=== PATIENT | male | born 1935 | race Caucasian/White ===

== ENCOUNTER 2021-03-08 08:22 | Emergency (ER) | payer MEDICARE, OTHER ==
[2021-03-08] VITALS (9 sets, daily range): BP systolic 120–143; BP diastolic 58–77
[~2021-03-08] VITALS: Ht 165.1 cm; Wt 86.8 kg
[~2021-03-08 08:22] MED LIST: ACET-3068 PO; LATA2.5D14; LISI10TA27; METF-438; SIMV10TA98; TEMA15CA
[2021-03-08] MEDS ORDERED: normal saline 1000ML IV soln IVB ONE (08:50)
[2021-03-08 09:32] LABS: BASOPHILS % (AUTO) 0.4 % (0-1); EOSINOPHILS % (AUTO) 0.4 % (0-6); HEMATOCRIT 22.9 % (42.0-52.0); HEMOGLOBIN 7.1 g/dl (14.0-17.9); LYMPHOCYTES # (AUTO) 0.9 X10'3 (1.1-4.8); LYMPHOCYTES % (AUTO) 27.4 % (21-51); MEAN CORPUSCULAR HEMOGLOBIN 29.6 PG (27.0-31.0); MEAN CORPUSCULAR HGB CONC 30.9 g/dL (33.0-36.5); MEAN CORPUSCULAR VOLUME 95.7 FL (78-98); MEAN PLATELET VOLUME 8.7 FL (7.4-10.4); MONOCYTES # (AUTO) 1.1 X10'3 (0-0.9); NEUTROPHILS # (AUTO) 1.2 X10'3 (1.8-7.7); NEUTROPHILS % (AUTO) 37.8 % (42-75); PLATELET COUNT 67 X10'3 (140-440); RED CELL DISTRIBUTION WIDTH 22.8 % (11.5-14.5); WHITE BLOOD COUNT 3.1 X10'3 (4.5-11.0)
[2021-03-08 09:53] LABS: ALBUMIN 3.2 G/DL (3.4-5.0); ALBUMIN/GLOBULIN RATIO 0.9 (1.1-1.5); ALKALINE PHOSPHATASE 52 IU/L (46-116); ANION GAP 10 (8-16); ASPARTATE AMINO TRANSFERASE 8 U/L (10-37); BILIRUBIN,TOTAL 0.5 MG/DL (0.1-1.0); BLOOD UREA NITROGEN 21 MG/DL (7-18); BUN/CREATININE RATIO 18.3 (5.4-32.0); CALCIUM 8.9 MG/DL (8.5-10.1); CHLORIDE 106 MMOL/L (99-107); CREATININE 1.15 MG/DL (0.60-1.10); GLUCOSE 116 MG/DL (70-104); POTASSIUM 4.1 MMOL/L (3.5-5.1); SODIUM 138 MMOL/L (135-145); TOTAL CARBON DIOXIDE 21.9 MMOL/L (24-32); TOTAL PROTEIN 6.7 G/DL (6.4-8.2); eGFR 60 ML/MIN
[2021-03-08 10:15] LABS: ANISOCYTOSIS 3+; PLATELET ESTIMATE DECREASED; TOTAL CELLS COUNTED 100
[2021-03-08 10:39] LABS: ALANINE AMINOTRANSFERASE 8 U/L (12-78)
--- NOTE | 2021-03-08 13:17 | NUR ---
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 Pt calm in bed, VSS, afebrile. Pt has PRBC infusing, site iv intact and pt breathing even and easy. Continue monitoring closely
== END 2021-03-08 16:44 | disposition home or self-care (01) ==
LOC: ER 08:23
DX: D50.0 Iron deficiency anemia secondary to blood loss (chronic) (principal); C92.00 Acute myeloblastic leukemia, not having achieved remission; I10 Essential (primary) hypertension; E11.9 Type 2 diabetes mellitus without complications; Z98.890 Other specified postprocedural states
CPT/HCPCS: 36415; 36430; 71045; 80053; 85007; 85025; 85610; 86644; 86885; 86900; 86901; 86920; 86945; 93005; 96360; 96361; 99291; J7030; P9016

== ENCOUNTER 2021-06-10 09:35 | Emergency (ER) | payer MEDICARE, OTHER ==
[~2021-06-10] VITALS: Ht 165.1 cm; Wt 84.0 kg
[2021-06-10] MEDS ORDERED: normal saline 1000ML IV soln IVB ONE (09:45)
[2021-06-10 10:58] LABS: BASOPHILS % (AUTO) 0.2 % (0-1); EOSINOPHILS % (AUTO) 0.1 % (0-6); HEMATOCRIT 24.1 % (42.0-52.0); HEMOGLOBIN 7.9 g/dl (14.0-17.9); LYMPHOCYTES # (AUTO) 0.6 X10'3 (1.1-4.8); LYMPHOCYTES % (AUTO) 5.7 % (21-51); MEAN CORPUSCULAR HEMOGLOBIN 33.7 PG (27.0-31.0); MEAN CORPUSCULAR HGB CONC 32.9 g/dL (33.0-36.5); MEAN CORPUSCULAR VOLUME 102.4 FL (78-98); MEAN PLATELET VOLUME 8.3 FL (7.4-10.4); MONOCYTES # (AUTO) 5.6 X10'3 (0-0.9); NEUTROPHILS # (AUTO) 4.5 X10'3 (1.8-7.7); PLATELET COUNT 74 X10'3 (140-440); RED BLOOD COUNT 2.36 X10'6 (4.70-6.10); RED CELL DISTRIBUTION WIDTH 21.2 % (11.5-14.5); WHITE BLOOD COUNT 10.7 X10'3 (4.5-11.0)
[2021-06-10 11:11] LABS: ALANINE AMINOTRANSFERASE 12 U/L (12-78); ALBUMIN 2.9 G/DL (3.4-5.0); ALBUMIN/GLOBULIN RATIO 0.9 (1.1-1.5); ALKALINE PHOSPHATASE 65 IU/L (46-116); ANION GAP 10 (8-16); ASPARTATE AMINO TRANSFERASE 9 U/L (10-37); BILIRUBIN,TOTAL 0.7 MG/DL (0.1-1.0); BLOOD UREA NITROGEN 25 MG/DL (7-18); BUN/CREATININE RATIO 18.2 (5.4-32.0); CALCIUM 8.6 MG/DL (8.5-10.1); CHLORIDE 107 MMOL/L (99-107); CREATININE 1.37 MG/DL (0.60-1.10); GLUCOSE 174 MG/DL (70-104); POTASSIUM 4.1 MMOL/L (3.5-5.1); SODIUM 142 MMOL/L (135-145); TOTAL CARBON DIOXIDE 24.9 MMOL/L (24-32); TOTAL PROTEIN 6.3 G/DL (6.4-8.2); eGFR 49 ML/MIN
[2021-06-10 11:48] LABS: TOTAL CELLS COUNTED 100
[2021-06-10 11:51] LABS: ANISOCYTOSIS 3+; PLATELET ESTIMATE DECREASED
[2021-06-10 11:52] LABS: LARGE PLATELETS FEW; POLYCHROMASIA FEW; SPHEROCYTES FEW; STOMATOCYTES 3+
[2021-06-10 13:09] LABS: CLARITY,URINE SLIGHTLY CLOUDY (Clear); COLOR,URINE YELLOW (Yellow); GLUCOSE, URINE NEGATIVE (Neg); KETONES,URINE NEGATIVE (Neg); LEUKOCYTE ESTERASE ,URINE NEGATIVE (Neg); NITRITES, URINE NEGATIVE (Neg); OCCULT BLOOD,URINE TRACE-LYSED (Neg); PROTEIN,URINE NEGATIVE (Neg); UA COLLECTION TYPE CLN CATCH MIDSTREAM; UROBILINOGEN,URINE 0.2 E.U/dL (0.2-1.0)
[2021-06-10 13:18] LABS: HYALINE CASTS 0-3 /LPF (NEGATIVE); SQUAMOUS EPITHELIAL CELL,UR FEW /LPF (FEW)
[2021-06-10 13:19] LABS: BACTERIA,URINE FEW /HPF (Neg)
[2021-06-10 13:20] LABS: WBC,URINE 0-4 /HPF (0-4)
[2021-06-10] MEDS ORDERED: acetaminophen 325mg tablet PO ONE (13:25)
--- NOTE | 2021-06-10 13:47 | NUR ---
PT AMB WITH MIN ASSIST ABOUT 10-15 FEET, USING WALKER, NO LIGHTHEADEDNESS/DIZZINESS, AT BEDSIDE
[2021-06-10 14:11] VITALS: BP 114/62
== END 2021-06-10 14:14 | disposition home or self-care (01) ==
LOC: ER 09:35
DX: D53.9 Nutritional anemia, unspecified (principal); I10 Essential (primary) hypertension; E11.9 Type 2 diabetes mellitus without complications; Z85.6 Personal history of leukemia; Z98.890 Other specified postprocedural states; Z79.899 Other long term (current) drug therapy
CPT/HCPCS: 36415; 80053; 81001; 85007; 85025; 96360; 96361; 99285; J7030

== ENCOUNTER 2021-07-17 15:52 | Inpatient (IN) | payer MEDICARE ==
[~2021-07-17] VITALS: Ht 165.1 cm; Wt 84.1 kg
--- NOTE | 2021-07-17 16:21 | NUR ---
PT IS RESTING QUIETLY ON GURNEY, RESP EVEN AND UNLABORED, GAVE PT WARM BLANKET
[2021-07-17 16:32] LABS: ALANINE AMINOTRANSFERASE 13 U/L (12-78); ALBUMIN 3.1 G/DL (3.4-5.0); ALBUMIN/GLOBULIN RATIO 0.9 (1.1-1.5); ALKALINE PHOSPHATASE 45 IU/L (46-116); ANION GAP 11 (8-16); ASPARTATE AMINO TRANSFERASE 10 U/L (10-37); BILIRUBIN,TOTAL 0.5 MG/DL (0.1-1.0); BLOOD UREA NITROGEN 23 MG/DL (7-18); BUN/CREATININE RATIO 17.3 (5.4-32.0); CHLORIDE 107 MMOL/L (99-107); CREATININE 1.33 MG/DL (0.60-1.10); GLUCOSE 219 MG/DL (70-104); HEMOGLOBIN 7.5 g/dl (14.0-17.9); MONOCYTES # (AUTO) 5.7 X10'3 (0-0.9); POTASSIUM 4.2 MMOL/L (3.5-5.1); SODIUM 144 MMOL/L (135-145); TOTAL CARBON DIOXIDE 25.8 MMOL/L (24-32); TOTAL PROTEIN 6.4 G/DL (6.4-8.2); eGFR 51 ML/MIN
[2021-07-17 16:34] LABS: BASOPHILS % (AUTO) 0 % (0-1); EOSINOPHILS % (AUTO) 0.2 % (0-6); HEMATOCRIT 22.7 % (42.0-52.0); LYMPHOCYTES # (AUTO) 0.5 X10'3 (1.1-4.8); LYMPHOCYTES % (AUTO) 4.7 % (21-51); MEAN CORPUSCULAR HEMOGLOBIN 33.8 PG (27.0-31.0); MEAN CORPUSCULAR HGB CONC 33.1 g/dL (33.0-36.5); MEAN CORPUSCULAR VOLUME 102.3 FL (78-98); MEAN PLATELET VOLUME 8.8 FL (7.4-10.4); NEUTROPHILS # (AUTO) 3.5 X10'3 (1.8-7.7); NEUTROPHILS % (AUTO) 36.2 % (42-75); PLATELET COUNT 128 X10'3 (140-440); RED BLOOD COUNT 2.21 X10'6 (4.70-6.10); RED CELL DISTRIBUTION WIDTH 19.9 % (11.5-14.5); WHITE BLOOD COUNT 9.7 X10'3 (4.5-11.0)
[2021-07-17] MEDS ORDERED: normal saline 1000ml 1,000 ML IV ONE (17:30)
[2021-07-17] MEDS ORDERED: iohexol 350MG/ML 100ml bottle IV ONE (17:39)
[2021-07-17 18:21] LABS: ANISOCYTOSIS 3+; MICROCYTOSIS FEW; NUCLEATED RED BLOOD CELLS 1 /100WBC (0-0); PLATELET ESTIMATE DECREASED; TOTAL CELLS COUNTED 100
[2021-07-17 18:22] LABS: POLYCHROMASIA 1+; TEAR DROP CELLS FEW
[2021-07-17 18:23] LABS: LARGE PLATELETS FEW; STOMATOCYTES 4+; TOXIC VACUOLATION 1+
[2021-07-17 18:27] LABS: MONOCYTES % (AUTO) 58.9 % (2-12)
[2021-07-17] MEDS ORDERED: MESSAGE TO NURSING PO ONE (19:50)
[2021-07-17] MEDS ORDERED: azithromycin 250mg tablet PO ONE (20:05)
[2021-07-17] MEDS ORDERED: CefTRIAXone/D5W-Rocephin 1gm 50 ML IV ONE (20:05)
[2021-07-17] MEDS ORDERED: metroNIDAZOLE-Flagyl 500mg/NS 100 ML IV STA (20:45)
[2021-07-17] MEDS ORDERED: temazepam 15mg capsule PO PRN (21:00)
[2021-07-17] MEDS ORDERED: METF-1203 PO (21:40)
[2021-07-17] MEDS ORDERED: GABA300C PO (21:40)
[2021-07-17] MEDS ORDERED: ASPI-611 PO (21:40)
[2021-07-17] MEDS ORDERED: GLIM2TAB6 PO (21:40)
[2021-07-17] MEDS ORDERED: HYDROcodone/acetaminophen 5mg/325mg tablet PO PRN (23:40)
[2021-07-17] MEDS ORDERED: HYDROmorphone inj. 0.5 MG/0.5 ML DISP.SYRIN IV PRN (23:40)
[2021-07-17] MEDS ORDERED: ondansetron/PF 4mg/2ml inj IV PRN (23:40)
[2021-07-17] MEDS ORDERED: acetaminophen 650mg rectal suppository RC PRN (23:40)
[2021-07-17] MEDS ORDERED: morphine 2 MG/ML inj. syringe IV PRN ×2 (23:40)
[2021-07-17] MEDS ORDERED: ondansetron 4mg rapidly disintigrating tab PO PRN (23:40)
[2021-07-17] MEDS ORDERED: diphenhydrAMINE 25mg capsule PO PRN (23:40)
[2021-07-17] MEDS ORDERED: acetaminophen 325mg tablet PO PRN ×2 (23:40)
[2021-07-17] MEDS ORDERED: diphenhydrAMINE 50 mg/ml inj IV PRN (23:40)
[2021-07-17] MEDS ORDERED: bisacodyl 10mg suppository rectal RC PRN (23:40)
[2021-07-17] MEDS ORDERED: mag hydrox/Alum hydrox/simeth 30ml oral suspension PO PRN (23:40)
[2021-07-17] MEDS ORDERED: magnesium hydroxide 30ml (MOM) UD suspension PO PRN (23:40)
[2021-07-17] MEDS ORDERED: insulin Lispro (HumaLOG) vial - multi-dose SQ SCH (23:55)
[2021-07-17] MEDS ORDERED: glucagon, human recombinant 1mg kit SUBCUT PRN (23:55)
[2021-07-17] MEDS ORDERED: dextrose ORAL solution 15 GM/59 ML bottle PO PRN ×2 (23:55)
[2021-07-17] MEDS ORDERED: MESSAGE TO PHARMACY PO ONE (23:55)
[2021-07-17] MEDS ORDERED: dextrose 50%-water 50ml dispensing syringe IV PRN ×2 (23:55)
[2021-07-18] VITALS (7 sets, daily range): BP systolic 99–124; BP diastolic 47–67
[2021-07-18] MEDS: benzocaine/menthol oral lozeng 1 EACH BOX MM PRN ×3 (00:35→05:40)
[2021-07-18] MEDS: normal saline 1000ml 1,000 ML IV SCH ×3 (00:38→20:00)
[2021-07-18 01:02] LABS: HEMOGLOBIN A1C 5.2 % (4.5-6.2)
[2021-07-18 01:05] LABS: PARTIAL THROMBOPLASTIN TIME 28 SECONDS (22-32)
[2021-07-18 01:08] LABS: MAGNESIUM 1.7 MG/DL (1.5-2.4)
[2021-07-18 03:05] LABS: MONOCYTES # (AUTO) 6.4 X10'3 (0-0.9); NEUTROPHILS # (AUTO) 3.5 X10'3 (1.8-7.7)
[2021-07-18 03:08] LABS: BASOPHILS % (AUTO) 0.1 % (0-1); EOSINOPHILS % (AUTO) 0.1 % (0-6); HEMOGLOBIN 7.1 g/dl (14.0-17.9); LYMPHOCYTES # (AUTO) 1.1 X10'3 (1.1-4.8); LYMPHOCYTES % (AUTO) 9.6 % (21-51); MEAN CORPUSCULAR HEMOGLOBIN 33.5 PG (27.0-31.0); MEAN CORPUSCULAR HGB CONC 32.3 g/dL (33.0-36.5); MEAN CORPUSCULAR VOLUME 103.7 FL (78-98); MEAN PLATELET VOLUME 8.9 FL (7.4-10.4); MONOCYTES % (AUTO) 58.3 % (2-12); NEUTROPHILS % (AUTO) 31.9 % (42-75); PLATELET COUNT 112 X10'3 (140-440); RED BLOOD COUNT 2.12 X10'6 (4.70-6.10); RED CELL DISTRIBUTION WIDTH 20.7 % (11.5-14.5); WHITE BLOOD COUNT 11.1 X10'3 (4.5-11.0)
--- NOTE | 2021-07-18 03:16 | NUR ---
reported new critical hemoglobin result to dr VILLALOBOS
[2021-07-18 03:23] LABS: ALANINE AMINOTRANSFERASE 9 U/L (12-78); ALBUMIN 2.8 G/DL (3.4-5.0); ALBUMIN/GLOBULIN RATIO 0.9 (1.1-1.5); ALKALINE PHOSPHATASE 44 IU/L (46-116); ANION GAP 8 (8-16); ASPARTATE AMINO TRANSFERASE 9 U/L (10-37); BILIRUBIN,TOTAL 0.5 MG/DL (0.1-1.0); BLOOD UREA NITROGEN 25 MG/DL (7-18); BUN/CREATININE RATIO 22.1 (5.4-32.0); CALCIUM 8.6 MG/DL (8.5-10.1); CHLORIDE 107 MMOL/L (99-107); CREATININE 1.13 MG/DL (0.60-1.10); GLUCOSE 147 MG/DL (70-104); POTASSIUM 4.1 MMOL/L (3.5-5.1); SODIUM 141 MMOL/L (135-145); TOTAL CARBON DIOXIDE 25.6 MMOL/L (24-32); TOTAL PROTEIN 5.9 G/DL (6.4-8.2); eGFR 62 ML/MIN
[2021-07-18 04:35] LABS: ANISOCYTOSIS 3+; PLATELET ESTIMATE DECREASED; POLYCHROMASIA FEW; TEAR DROP CELLS FEW; TOTAL CELLS COUNTED 100
[2021-07-18 04:36] LABS: ELLIPTOCYTES FEW
--- NOTE | 2021-07-18 05:00 | NUR ---
PT WAS HELPED TO BEDSIDE COMMODE. HE ATTEMPTED TO HAVE A BOWEL MOVEMENT BUT WAS UNABLE. HE WAS ASSISTED BACK TO [facility]. PT IS QUITE WEAK AND REQUIRES ONE PERSON ASSIST JUST TO MOVE FROM [facility] TO BEDSIDE COMMODE.
[2021-07-18] MEDS: pantoprazole 40mg Tablet.DR PO SCH (07:30)
[2021-07-18] MEDS: docusate sod 100mg capsule PO SCH ×2 (08:00→20:17)
[2021-07-18] MEDS ORDERED: metroNIDAZOLE-Flagyl 500mg/NS 100 ML IV SCH (08:00)
[2021-07-18] MEDS: gabapentin 300mg capsule PO SCH ×4 (08:00→20:50)
--- NOTE | 2021-07-18 08:17 | NUR ---
TELEPHONE CALL FROM DAUGHTER, FOR CONDITION REPORT. WILL BE COMING TO VISIT LATER ON THIS MORNING.
[2021-07-18] MEDS: piperacillin/tazo 4.5gm/100ml 100 ML IV SCH ×2 (09:29→20:50)
[2021-07-18] MEDS: HYDROcodone/acetaminophen 10/325mg tab PO PRN (20:14)
[2021-07-19] VITALS (13 sets, daily range): BP systolic 97–140; BP diastolic 46–76
[2021-07-19] MEDS: normal saline 1000ml 1,000 ML IV SCH ×2 (05:18→14:25)
[2021-07-19 06:08] LABS: BASOPHILS % (AUTO) 0.7 % (0-1); EOSINOPHILS # (AUTO) 0.1 X10'3 (0-0.9); EOSINOPHILS % (AUTO) 1.7 % (0-6); HEMATOCRIT 23.8 % (42.0-52.0); HEMOGLOBIN 7.9 g/dl (14.0-17.9); LYMPHOCYTES % (AUTO) 18.9 % (21-51); MEAN CORPUSCULAR HGB CONC 33.2 g/dL (33.0-36.5); MEAN CORPUSCULAR VOLUME 99.2 FL (78-98); MEAN PLATELET VOLUME 8.7 FL (7.4-10.4); MONOCYTES # (AUTO) 2.2 X10'3 (0-0.9); NEUTROPHILS % (AUTO) 37.7 % (42-75); PLATELET COUNT 85 X10'3 (140-440); RED BLOOD COUNT 2.39 X10'6 (4.70-6.10); RED CELL DISTRIBUTION WIDTH 23.8 % (11.5-14.5); WHITE BLOOD COUNT 5.4 X10'3 (4.5-11.0)
--- NOTE | 2021-07-19 06:11 | NUR ---
Problems reprioritized. Patient report given, questions answered & plan of care reviewed with Shu ZAMORANO .
[2021-07-19 06:18] LABS: ALANINE AMINOTRANSFERASE 13 U/L (12-78); ALBUMIN 2.6 G/DL (3.4-5.0); ALBUMIN/GLOBULIN RATIO 0.8 (1.1-1.5); ALKALINE PHOSPHATASE 39 IU/L (46-116); ANION GAP 9 (8-16); ASPARTATE AMINO TRANSFERASE 11 U/L (10-37); BILIRUBIN,TOTAL 0.5 MG/DL (0.1-1.0); BLOOD UREA NITROGEN 23 MG/DL (7-18); BUN/CREATININE RATIO 22.1 (5.4-32.0); CALCIUM 8.3 MG/DL (8.5-10.1); CHLORIDE 107 MMOL/L (99-107); CREATININE 1.04 MG/DL (0.60-1.10); GLUCOSE 125 MG/DL (70-104); SODIUM 142 MMOL/L (135-145); TOTAL CARBON DIOXIDE 25.6 MMOL/L (24-32); TOTAL PROTEIN 5.8 G/DL (6.4-8.2); eGFR 68 ML/MIN
--- NOTE | 2021-07-19 07:23 | NUR ---
Diabetes consult: A1C 5.2 DM education not indicated at this time. Addendum: 07/19/21 at [address] Amended: Links added.
[2021-07-19] MEDS: docusate sod 100mg capsule PO SCH ×2 (08:21→20:24)
[2021-07-19] MEDS: piperacillin/tazo 4.5gm/100ml 100 ML IV SCH ×2 (08:21→20:34)
[2021-07-19] MEDS: pantoprazole 40mg Tablet.DR PO SCH (08:21)
[2021-07-19] MEDS: gabapentin 300mg capsule PO SCH ×4 (08:21→20:24)
[2021-07-19 11:08] LABS: TOTAL CELLS COUNTED 100
[2021-07-19 11:09] LABS: ANISOCYTOSIS 3+; BURR CELLS 5; PLATELET ESTIMATE DECREASED
[2021-07-19 11:10] LABS: TEAR DROP CELLS FEW
--- NOTE | 2021-07-19 18:36 | NUR ---
Report given to Mirna ZAMORANO at [facility]. Report also given to [facility] for transfer. LAKSHMI mack x2 for continued IV antibiotic at [facility]. All possessions with patient and transferred off unit via EMS. Addendum: 07/19/21 at 1845 by Kesha Willoughby RN Wrong patient. Disregard
--- NOTE | 2021-07-19 18:46 | NUR ---
Problems reprioritized. Patient report given, questions answered & plan of care reviewed with Anjum ZAMORANO.
--- NOTE | 2021-07-19 18:47 | NUR ---
Patient in room PCU 3028. I have received report from JAYE ZAMORANO and had the opportunity to ask questions and assume patient care.
[2021-07-19] MEDS: lactobacillus rhamnosus 10,000 MMU CELLS/CAPSULE PO SCH (20:23)
[2021-07-20] MEDS: normal saline 1000ml 1,000 ML IV SCH ×2 (00:11→11:40)
[2021-07-20] MEDS: HYDROcodone/acetaminophen 10/325mg tab PO PRN (01:30)
[2021-07-20 01:38] VITALS: BP 100/52
[2021-07-20 02:00] VITALS: BP 117/59
[2021-07-20 06:00] VITALS: BP 118/74
--- NOTE | 2021-07-20 06:13 | NUR ---
Problems reprioritized. Patient report given, questions answered & plan of care reviewed with JAYE ZAMORANO.
[2021-07-20 06:14] LABS: BASOPHILS % (AUTO) 0.9 % (0-1); EOSINOPHILS # (AUTO) 0.1 X10'3 (0-0.9); EOSINOPHILS % (AUTO) 2.2 % (0-6); HEMATOCRIT 23.6 % (42.0-52.0); HEMOGLOBIN 7.8 g/dl (14.0-17.9); LYMPHOCYTES # (AUTO) 0.8 X10'3 (1.1-4.8); MEAN CORPUSCULAR HEMOGLOBIN 32.7 PG (27.0-31.0); MEAN CORPUSCULAR HGB CONC 33.1 g/dL (33.0-36.5); MEAN CORPUSCULAR VOLUME 98.9 FL (78-98); MEAN PLATELET VOLUME 8.9 FL (7.4-10.4); MONOCYTES # (AUTO) 1.5 X10'3 (0-0.9); MONOCYTES % (AUTO) 40.7 % (2-12); NEUTROPHILS # (AUTO) 1.3 X10'3 (1.8-7.7); NEUTROPHILS % (AUTO) 35.2 % (42-75); PLATELET COUNT 72 X10'3 (140-440); RED BLOOD COUNT 2.39 X10'6 (4.70-6.10); RED CELL DISTRIBUTION WIDTH 23.2 % (11.5-14.5); WHITE BLOOD COUNT 3.7 X10'3 (4.5-11.0)
[2021-07-20 06:39] LABS: ALANINE AMINOTRANSFERASE 7 U/L (12-78); ALBUMIN 2.5 G/DL (3.4-5.0); ALBUMIN/GLOBULIN RATIO 0.8 (1.1-1.5); ALKALINE PHOSPHATASE 40 IU/L (46-116); ANION GAP 7 (8-16); ASPARTATE AMINO TRANSFERASE 8 U/L (10-37); BILIRUBIN,TOTAL 0.4 MG/DL (0.1-1.0); BLOOD UREA NITROGEN 18 MG/DL (7-18); BUN/CREATININE RATIO 17.6 (5.4-32.0); CALCIUM 8.3 MG/DL (8.5-10.1); CHLORIDE 109 MMOL/L (99-107); CREATININE 1.02 MG/DL (0.60-1.10); GLUCOSE 131 MG/DL (70-104); SODIUM 142 MMOL/L (135-145); TOTAL CARBON DIOXIDE 25.7 MMOL/L (24-32); TOTAL PROTEIN 5.6 G/DL (6.4-8.2); eGFR 69 ML/MIN
[2021-07-20 07:02] LABS: ANISOCYTOSIS 3+; NUCLEATED RED BLOOD CELLS 1 /100WBC (0-0); PLATELET ESTIMATE DECREASED; POIKILOCYTOSIS FEW; POLYCHROMASIA 1+; TOTAL CELLS COUNTED 100
[2021-07-20] MEDS: lactobacillus rhamnosus 10,000 MMU CELLS/CAPSULE PO SCH (08:54)
[2021-07-20] MEDS: gabapentin 300mg capsule PO SCH ×2 (08:54→13:06)
[2021-07-20] MEDS: piperacillin/tazo 4.5gm/100ml 100 ML IV SCH (08:54)
[2021-07-20] MEDS: pantoprazole 40mg Tablet.DR PO SCH (08:54)
[2021-07-20] MEDS: docusate sod 100mg capsule PO SCH (08:54)
[2021-07-20 11:00] VITALS: BP 124/56
[2021-07-20 15:00] VITALS: BP 111/56
--- NOTE | 2021-07-20 16:25 | NUR ---
Patient stable for discharge. Daughter, , and patient educated on DOMO drain management. Family verbalized understanding. PIV removed with catheter intact. All belongings gathered and patient transferred off unit via wheelchair.
[2021-07-20] MEDS ORDERED: LEVO500T90 PO (17:47)
[2021-07-20] MEDS ORDERED: METR-159 PO (17:48)
[2021-07-29] MEDS ORDERED: APIX5TAB3 PO (11:14)
== END 2021-07-20 16:12 | disposition home health service (06) | DRG 391 ==
LOC: ER 15:53 → ED HOLD 23:51 → PCU 3S 07-18 16:30
PROVIDERS: ADMIT Family Medicine; ATTEND Family Medicine
PROC: B32T1ZZ Computerized Tomography (CT Scan) of Left Pulmonary Artery using Low Osmolar Contrast (ICD-10-PCS; 2021-07-17)
PROC: B3201ZZ Computerized Tomography (CT Scan) of Thoracic Aorta using Low Osmolar Contrast (ICD-10-PCS; 2021-07-17)
PROC: B32S1ZZ Computerized Tomography (CT Scan) of Right Pulmonary Artery using Low Osmolar Contrast (ICD-10-PCS; 2021-07-17)
PROC: B4201ZZ Computerized Tomography (CT Scan) of Abdominal Aorta using Low Osmolar Contrast (ICD-10-PCS; 2021-07-17)
PROC: B4241ZZ Computerized Tomography (CT Scan) of Superior Mesenteric Artery using Low Osmolar Contrast (ICD-10-PCS; 2021-07-17)
PROC: B4281ZZ Computerized Tomography (CT Scan) of Bilateral Renal Arteries using Low Osmolar Contrast (ICD-10-PCS; 2021-07-17)
PROC: B42C1ZZ Computerized Tomography (CT Scan) of Pelvic Arteries using Low Osmolar Contrast (ICD-10-PCS; 2021-07-17)
PROC: B42H1ZZ Computerized Tomography (CT Scan) of Bilateral Lower Extremity Arteries using Low Osmolar Contrast (ICD-10-PCS; 2021-07-17)
PROC: B4211ZZ Computerized Tomography (CT Scan) of Celiac Artery using Low Osmolar Contrast (ICD-10-PCS; 2021-07-17)
PROC: 30233N1 Transfusion of Nonautologous Red Blood Cells into Peripheral Vein, Percutaneous Approach (ICD-10-PCS; 2021-07-18)
PROC: 0W9J30Z Drainage of Pelvic Cavity with Drainage Device, Percutaneous Approach (ICD-10-PCS; principal; 2021-07-19)
DX: K57.20 Diverticulitis of large intestine with perforation and abscess without bleeding (principal); J96.01 Acute respiratory failure with hypoxia; J98.11 Atelectasis; N17.9 Acute kidney failure, unspecified; D64.9 Anemia, unspecified; Z20.822 Contact with and (suspected) exposure to COVID-19; W18.39XA Other fall on same level, initial encounter; E86.1 Hypovolemia; I10 Essential (primary) hypertension; D69.6 Thrombocytopenia, unspecified; E11.65 Type 2 diabetes mellitus with hyperglycemia; Z85.46 Personal history of malignant neoplasm of prostate; Z85.6 Personal history of leukemia; Z79.899 Other long term (current) drug therapy; Z79.82 Long term (current) use of aspirin; Y93.89 Activity, other specified; Y92.098 Other place in other non-institutional residence as the place of occurrence of the external cause; Y99.8 Other external cause status
CPT/HCPCS: 36415; 36430; 49406; 70450; 71045; 71275; 74177; 80053; 82948; 83036; 83605; 83735; 83880; 84100; 84145; 84443; 84484; 85007; 85025; 85610; 85730; 86885; 86900; 86901; 86920; 87040; 87070; 87077; 87081; 87186; 87635; 93005; 97110; 97116; 97162; 99285; C9803; G0378; J0696; J1815; J2543; J3490; J7030; P9016; Q9967

== ENCOUNTER 2021-08-23 06:45 | Emergency (ER) | payer MEDICARE ==
[~2021-08-23] VITALS: Ht 165.1 cm; Wt 84.0 kg
[~2021-08-23 06:45] MED LIST changes: -ACET-3068 PO; +APIX5TAB3 PO; +ASPI-611 PO; +DOXY-243 PO; +GABA300C PO; -LATA2.5D14; -LISI10TA27; -METF-438; -SIMV10TA98; -TEMA15CA
[2021-08-23 08:17] LABS: BASOPHILS % (AUTO) 0.1 % (0-1); EOSINOPHILS % (AUTO) 0.3 % (0-6); LYMPHOCYTES # (AUTO) 0.6 X10'3 (1.1-4.8); LYMPHOCYTES % (AUTO) 7.2 % (21-51); MEAN CORPUSCULAR HEMOGLOBIN 32.8 PG (27.0-31.0); MEAN CORPUSCULAR VOLUME 99.5 FL (78-98); MEAN PLATELET VOLUME 9.3 FL (7.4-10.4); MONOCYTES # (AUTO) 5.3 X10'3 (0-0.9); MONOCYTES % (AUTO) 60.2 % (2-12); NEUTROPHILS # (AUTO) 2.8 X10'3 (1.8-7.7); NEUTROPHILS % (AUTO) 32.2 % (42-75); PLATELET COUNT 77 X10'3 (140-440); RED BLOOD COUNT 2.13 X10'6 (4.70-6.10); RED CELL DISTRIBUTION WIDTH 23.8 % (11.5-14.5); WHITE BLOOD COUNT 8.8 X10'3 (4.5-11.0)
[2021-08-23 08:44] LABS: HEMATOCRIT 21.2 % (42.0-52.0)
[2021-08-23 08:49] LABS: ANISOCYTOSIS 3+; ELLIPTOCYTES 2+; PLATELET ESTIMATE DECREASED; POLYCHROMASIA FEW
[2021-08-23 09:44] LABS: ALANINE AMINOTRANSFERASE 11 U/L (12-78); ALBUMIN 3.1 G/DL (3.4-5.0); ALBUMIN/GLOBULIN RATIO 0.9 (1.1-1.5); ALKALINE PHOSPHATASE 45 IU/L (46-116); ANION GAP 10 (8-16); ASPARTATE AMINO TRANSFERASE 9 U/L (10-37); BILIRUBIN,TOTAL 0.6 MG/DL (0.1-1.0); BLOOD UREA NITROGEN 17 MG/DL (7-18); BUN/CREATININE RATIO 14.3 (5.4-32.0); CALCIUM 9.4 MG/DL (8.5-10.1); CHLORIDE 102 MMOL/L (99-107); CREATININE 1.19 MG/DL (0.60-1.10); GLUCOSE 156 MG/DL (70-104); MAGNESIUM 1.9 MG/DL (1.5-2.4); POTASSIUM 4.1 MMOL/L (3.5-5.1); SODIUM 135 MMOL/L (135-145); TOTAL CARBON DIOXIDE 23.5 MMOL/L (24-32); TOTAL PROTEIN 6.7 G/DL (6.4-8.2); eGFR 58 ML/MIN
[2021-08-23 11:19] VITALS: BP 100/58
[2021-08-23 11:43] VITALS: BP 101/57
[2021-08-23 12:40] VITALS: BP 101/76
[2021-08-23 13:20] VITALS: BP 124/64
[2021-08-23 13:29] VITALS: BP 102/64
--- NOTE | 2021-08-23 13:29 | NUR ---
pt tolerated transfusion well. no complications or complaints
[2021-08-23] MEDS ORDERED: acetaminophen 325mg tablet PO ONE (13:55)
[2021-08-23 14:14] LABS: HEMATOCRIT 24.9 % (42.0-52.0); HEMOGLOBIN 8.2 g/dl (14.0-17.9); MEAN CORPUSCULAR HEMOGLOBIN 32.4 PG (27.0-31.0); MEAN CORPUSCULAR HGB CONC 32.9 g/dL (33.0-36.5); MEAN CORPUSCULAR VOLUME 98.3 FL (78-98); MEAN PLATELET VOLUME 9.2 FL (7.4-10.4); PLATELET COUNT 76 X10'3 (140-440); RED BLOOD COUNT 2.53 X10'6 (4.70-6.10); RED CELL DISTRIBUTION WIDTH 23.3 % (11.5-14.5); WHITE BLOOD COUNT 9.3 X10'3 (4.5-11.0)
== END 2021-08-23 22:02 | disposition home or self-care (01) ==
LOC: ER 06:45
DX: D50.0 Iron deficiency anemia secondary to blood loss (chronic) (principal); R53.1 Weakness; I48.91 Unspecified atrial fibrillation; I10 Essential (primary) hypertension; E11.9 Type 2 diabetes mellitus without complications; Z98.890 Other specified postprocedural states; Z79.82 Long term (current) use of aspirin; Z79.2 Long term (current) use of antibiotics; Z79.899 Other long term (current) drug therapy
CPT/HCPCS: 36415; 36430; 71045; 80053; 82948; 83605; 83735; 84145; 85008; 85025; 85027; 86644; 86885; 86900; 86901; 86920; 86945; 87040; 93005; 99291; P9016

== ENCOUNTER 2021-11-02 23:38 | Inpatient (IN) | payer MEDICARE ==
[~2021-11-02] VITALS: Ht 165.1 cm; Wt 75.0 kg
[~2021-11-02 23:38] MED LIST changes: +ACET-890 PO; -APIX5TAB3 PO; +CEFD300C3 PO; +CHOL10008 PO; -DOXY-243 PO; +GABA600T13 PO; +HYDR-3964 PO; +IRON150C13 PO; +LACT1CAP26 PO; +LORA10TA7 PO; +METF-436 PO; +POTA-188 PO
[2021-11-03] VITALS (9 sets, daily range): BP systolic 110–131; BP diastolic 50–72
[2021-11-03 01:37] LABS: MEAN PLATELET VOLUME 8.7 FL (7.4-10.4); MONOCYTES # (AUTO) 4.2 X10'3 (0-0.9); WHITE BLOOD COUNT 7.1 X10'3 (4.5-11.0)
[2021-11-03 01:39] LABS: BASOPHILS % (AUTO) 0.1 % (0-1); EOSINOPHILS % (AUTO) 0.1 % (0-6); LYMPHOCYTES # (AUTO) 0.8 X10'3 (1.1-4.8); LYMPHOCYTES % (AUTO) 11.4 % (21-51); MEAN CORPUSCULAR HEMOGLOBIN 30.4 PG (27.0-31.0); MEAN CORPUSCULAR HGB CONC 32.9 g/dL (33.0-36.5); MEAN CORPUSCULAR VOLUME 92.3 FL (78-98); MONOCYTES % (AUTO) 59.4 % (2-12); NEUTROPHILS # (AUTO) 2.1 X10'3 (1.8-7.7); PLATELET COUNT 111 X10'3 (140-440); RED BLOOD COUNT 2.04 X10'6 (4.70-6.10); RED CELL DISTRIBUTION WIDTH 19.4 % (11.5-14.5)
[2021-11-03 01:48] LABS: HEMOGLOBIN 6.2 g/dl (14.0-17.9)
[2021-11-03 01:49] LABS: ALANINE AMINOTRANSFERASE 58 U/L (12-78); ALBUMIN 2.2 G/DL (3.4-5.0); ALBUMIN/GLOBULIN RATIO 0.5 (1.1-1.5); ALKALINE PHOSPHATASE 49 IU/L (46-116); ANION GAP 9 (8-16); ASPARTATE AMINO TRANSFERASE 66 U/L (10-37); BILIRUBIN,TOTAL 0.6 MG/DL (0.1-1.0); BLOOD UREA NITROGEN 30 MG/DL (7-18); BUN/CREATININE RATIO 25.9 (5.4-32.0); CALCIUM 8.6 MG/DL (8.5-10.1); CHLORIDE 96 MMOL/L (99-107); CREATININE 1.16 MG/DL (0.60-1.10); GLUCOSE 156 MG/DL (70-104); HEMATOCRIT 18.8 % (42.0-52.0); POTASSIUM 4.6 MMOL/L (3.5-5.1); SODIUM 132 MMOL/L (135-145); TOTAL CARBON DIOXIDE 27.3 MMOL/L (24-32); TOTAL PROTEIN 6.4 G/DL (6.4-8.2); eGFR 60 ML/MIN
--- NOTE | 2021-11-03 02:40 | NUR ---
Informed by blood bank that the blood patient needs must come from [place]. MD Pierce aware.
[2021-11-03] MEDS ORDERED: potassium Cl 20 mEq SR tablet PO PRN ×2 (03:40)
[2021-11-03] MEDS ORDERED: potassium CL 10mEq/100ml bag 100 ML IV PRN (03:40)
[2021-11-03] MEDS ORDERED: magnesium 4gm in 100ml NS 100 ML IV PRN (03:40)
[2021-11-03] MEDS ORDERED: magnesium 2GM in 50ml NS 50 ML IV PRN (03:40)
[2021-11-03] MEDS ORDERED: ondansetron/PF 4mg/2ml inj IV PRN (03:40)
[2021-11-03] MEDS ORDERED: HYDROcodone/acetaminophen 5mg/325mg tablet PO PRN ×2 (03:40→14:25)
[2021-11-03] MEDS ORDERED: magnesium Cl slow-release 64mg tablet PO PRN (03:40)
[2021-11-03] MEDS: normal saline 1000ml 1,000 ML IV SCH ×2 (03:40→17:58)
[2021-11-03] MEDS ORDERED: acetaminophen 325mg tablet PO PRN ×2 (03:40)
[2021-11-03] MEDS ORDERED: morphine 2 MG/ML inj. syringe IV PRN ×2 (03:40→04:30)
[2021-11-03] MEDS: gabapentin 300mg capsule PO SCH ×2 (07:30→12:39)
[2021-11-03] MEDS: K and/or MAG REPLACEMENT MC SCH ×2 (08:00→18:59)
[2021-11-03] MEDS: pantoprazole 40mg Tablet.DR PO SCH ×2 (08:00→19:04)
--- NOTE | 2021-11-03 08:09 | NUR ---
YOHANA: DAUGHTER, PATIENT WAS AT [facility] [place]
--- NOTE | 2021-11-03 08:45 | NUR ---
Pt with Hx of diabetes, on CC diet. No hyperglycemia orders placed on admission. Hospitalist paged. [place]uchkingsley obtained.
[2021-11-03 09:43] LABS: WHITE BLOOD COUNT 5.4 X10'3 (4.5-11.0)
[2021-11-03 09:45] LABS: MEAN CORPUSCULAR HEMOGLOBIN 29.6 PG (27.0-31.0); MEAN CORPUSCULAR HGB CONC 32.7 g/dL (33.0-36.5); MEAN CORPUSCULAR VOLUME 90.3 FL (78-98); MEAN PLATELET VOLUME 8.5 FL (7.4-10.4); PLATELET COUNT 98 X10'3 (140-440); RED BLOOD COUNT 2.29 X10'6 (4.70-6.10); RED CELL DISTRIBUTION WIDTH 20.3 % (11.5-14.5)
[2021-11-03 09:57] LABS: APTT 33 SECONDS (22-32)
[2021-11-03 10:00] LABS: CHLORIDE 101 MMOL/L (99-107); CREATININE 0.97 MG/DL (0.60-1.10); SODIUM 133 MMOL/L (135-145); eGFR 73 ML/MIN
[2021-11-03 10:01] LABS: GLUCOSE 145 MG/DL (70-104)
[2021-11-03 10:02] LABS: ALANINE AMINOTRANSFERASE 44 U/L (12-78); ALBUMIN 1.9 G/DL (3.4-5.0); ALBUMIN/GLOBULIN RATIO 0.5 (1.1-1.5); ALKALINE PHOSPHATASE 44 IU/L (46-116); ANION GAP 7 (8-16); ASPARTATE AMINO TRANSFERASE 39 U/L (10-37); BILIRUBIN,TOTAL 0.5 MG/DL (0.1-1.0); BLOOD UREA NITROGEN 28 MG/DL (7-18); BUN/CREATININE RATIO 28.9 (5.4-32.0); CALCIUM 7.6 MG/DL (8.5-10.1); TOTAL CARBON DIOXIDE 24.9 MMOL/L (24-32); TOTAL PROTEIN 5.7 G/DL (6.4-8.2)
--- NOTE | 2021-11-03 10:45 | NUR ---
PRBC INCREASED TO 125CC/HR
[2021-11-03 10:50] LABS: ANISOCYTOSIS 3+; PLATELET ESTIMATE DECREASED; TOTAL CELLS COUNTED 100
[2021-11-03 11:02] LABS: HEMOGLOBIN 6.8 g/dl (14.0-17.9)
[2021-11-03 11:03] LABS: HEMATOCRIT 20.7 % (42.0-52.0)
--- NOTE | 2021-11-03 11:07 | NUR ---
Blood increased to 325mL/hr.
[2021-11-03 14:25] LABS: HEMATOCRIT 26.5 % (42.0-52.0); HEMOGLOBIN 8.8 g/dl (14.0-17.9); MEAN CORPUSCULAR HEMOGLOBIN 29.8 PG (27.0-31.0); MEAN CORPUSCULAR HGB CONC 33.3 g/dL (33.0-36.5); MEAN CORPUSCULAR VOLUME 89.5 FL (78-98); MEAN PLATELET VOLUME 8.5 FL (7.4-10.4); PLATELET COUNT 105 X10'3 (140-440); RED BLOOD COUNT 2.96 X10'6 (4.70-6.10); WHITE BLOOD COUNT 5.9 X10'3 (4.5-11.0)
--- NOTE | 2021-11-03 15:00 | NUR ---
Talked to James for report and found out the patient is currently covid positive. Patient came from [facility] to Emergency room and while patient was in ER the send out of a covid test taken at [facility] on Friday came back as positive. I talked to the nurse at [facility] for confirmation. She has the surgical fax number to send the results to us but does not have her IT person today to fax the email. So it will need to be followed up on. I talked to Tiffanie, nursing sup about the findings and patient will be sent to Covid floor instead.
--- NOTE | 2021-11-03 16:20 | NUR ---
Patient in room ORTHO 4020. I have received report from James ZAMORANO and had the opportunity to ask questions and assume patient care.
[2021-11-03] MEDS ORDERED: INSU100V11 SQ (18:04)
[2021-11-03] MEDS ORDERED: FERR325T32 PO (18:10)
[2021-11-03] MEDS ORDERED: OMEG1CAP13 PO (18:10)
[2021-11-03] MEDS ORDERED: DOCU100C40 PO (18:10)
[2021-11-03] MEDS ORDERED: LATA2.5D14 EACHEYE (18:17)
[2021-11-03] MEDS ORDERED: FURO-149 PO (18:17)
--- NOTE | 2021-11-03 18:28 | NUR ---
Problems reprioritized. Patient report given, questions answered & plan of care reviewed with Linda ZAMORANO.
[2021-11-03] MEDS ORDERED: SENN-263 PO (18:37)
[2021-11-03] MEDS ORDERED: LEVO500T90 PO (18:37)
[2021-11-03] MEDS ORDERED: MULT-1085 PO (18:37)
[2021-11-03] MEDS ORDERED: LORA-268 PO (18:37)
[2021-11-03] MEDS ORDERED: OMEG1CAP45 PO (18:37)
[2021-11-03] MEDS ORDERED: LORazepam 0.5 MG tablet PO PRN (18:50)
[2021-11-03] MEDS: docusate sod 100mg capsule PO SCH (19:04)
[2021-11-03] MEDS ORDERED: non-formulary drug (Cefdinir* 1 CAP) PO SCH (20:00)
[2021-11-03] MEDS ORDERED: sennosides 8.6mg tablet PO SCH (21:00)
[2021-11-03] MEDS ORDERED: gabapentin 300mg capsule PO SCH (21:00)
[2021-11-03] MEDS ORDERED: acetaminophen 325mg tablet PO SCH (21:00)
[2021-11-03] MEDS: HYDROcodone/acetaminophen 5mg/325mg tablet PO PRN (23:34)
[2021-11-04 02:00] VITALS: BP 95/44
[2021-11-04 06:00] VITALS: BP 104/50
--- NOTE | 2021-11-04 06:08 | NUR ---
Problems reprioritized. Patient report given, questions answered & plan of care reviewed with JAUN Mcarthur
[2021-11-04 07:01] LABS: EOSINOPHILS % (AUTO) 0 % (0-6); LYMPHOCYTES # (AUTO) 0.8 X10'3 (1.1-4.8); MEAN PLATELET VOLUME 9.4 FL (7.4-10.4)
[2021-11-04 07:03] LABS: BASOPHILS % (AUTO) 0.1 % (0-1); HEMATOCRIT 25.4 % (42.0-52.0); HEMOGLOBIN 8.4 g/dl (14.0-17.9); LYMPHOCYTES % (AUTO) 12.3 % (21-51); MEAN CORPUSCULAR HEMOGLOBIN 29.7 PG (27.0-31.0); MEAN CORPUSCULAR HGB CONC 32.8 g/dL (33.0-36.5); MEAN CORPUSCULAR VOLUME 90.6 FL (78-98); MONOCYTES # (AUTO) 3.2 X10'3 (0-0.9); MONOCYTES % (AUTO) 51.9 % (2-12); NEUTROPHILS # (AUTO) 2.2 X10'3 (1.8-7.7); NEUTROPHILS % (AUTO) 35.7 % (42-75); PLATELET COUNT 123 X10'3 (140-440); RED BLOOD COUNT 2.81 X10'6 (4.70-6.10); RED CELL DISTRIBUTION WIDTH 19.2 % (11.5-14.5); WHITE BLOOD COUNT 6.2 X10'3 (4.5-11.0)
[2021-11-04 07:49] LABS: ANISOCYTOSIS 2+; PLATELET ESTIMATE DECREASED; POLYCHROMASIA 1+; TOTAL CELLS COUNTED 100
[2021-11-04 07:50] LABS: BURR CELLS 1+
[2021-11-04] MEDS ORDERED: FISH OIL PO SCH (08:00)
[2021-11-04] MEDS ORDERED: iron polysaccharide complex 150mg capsule PO SCH (08:00)
[2021-11-04] MEDS ORDERED: potassium chloride 10mEq ER tablet PO SCH (08:00)
[2021-11-04] MEDS ORDERED: furosemide 40mg tablet PO SCH (08:00)
[2021-11-04] MEDS ORDERED: OMEGA-3/DHA/EPA/FISH OIL 1 EACH CAPSULE.DR PO SCH (08:00)
[2021-11-04] MEDS ORDERED: loratadine 10mg tablet PO SCH (08:00)
[2021-11-04] MEDS ORDERED: aspirin 81mg, enteric-coated 1 TAB TABLET.DR PO SCH (08:00)
[2021-11-04] MEDS: K and/or MAG REPLACEMENT MC SCH (08:00)
[2021-11-04] MEDS ORDERED: multivitamins, therapeutics tablet PO SCH (08:00)
[2021-11-04] MEDS ORDERED: OMEGA PO SCH (08:00)
[2021-11-04] MEDS ORDERED: latanoprost 0.005% 2.5ml ophthalmic drops EACHEYE SCH (08:00)
[2021-11-04] MEDS ORDERED: ferrous sulfate 325mg tablet PO SCH (08:00)
[2021-11-04] MEDS ORDERED: FATTY ACIDS PO SCH (08:00)
[2021-11-04] MEDS: normal saline 1000ml 1,000 ML IV SCH (08:16)
[2021-11-04] MEDS: docusate sod 100mg capsule PO SCH (08:52)
[2021-11-04] MEDS: gabapentin 300mg capsule PO SCH ×2 (08:52→12:24)
[2021-11-04] MEDS: HYDROcodone/acetaminophen 5mg/325mg tablet PO PRN ×2 (08:53→14:51)
[2021-11-04] MEDS: pantoprazole 40mg Tablet.DR PO SCH (08:53)
[2021-11-04 08:57] LABS: ALANINE AMINOTRANSFERASE 71 U/L (12-78); BILIRUBIN,TOTAL 0.8 MG/DL (0.1-1.0); CREATININE 0.96 MG/DL (0.60-1.10); GLUCOSE 154 MG/DL (70-104); eGFR 74 ML/MIN
[2021-11-04 08:59] LABS: ALBUMIN 2.1 G/DL (3.4-5.0); ALBUMIN/GLOBULIN RATIO 0.5 (1.1-1.5); ALKALINE PHOSPHATASE 54 IU/L (46-116); ASPARTATE AMINO TRANSFERASE 67 U/L (10-37); BLOOD UREA NITROGEN 31 MG/DL (7-18); BUN/CREATININE RATIO 32.3 (5.4-32.0); CALCIUM 8.9 MG/DL (8.5-10.1); TOTAL PROTEIN 6.7 G/DL (6.4-8.2)
--- NOTE | 2021-11-04 09:21 | NUR ---
Diabetes consult: Noted pt w/ hx of DM, A1c 5.9 well controlled and appropriate for age. DM ed not indicated at this time Addendum: 11/04/21 at [address] Amended: Links added.
[2021-11-04 14:39] LABS: POTASSIUM 5.1 MMOL/L (3.3-5.1)
[2021-12-19] MEDS ORDERED: PANT40TA54 PO (16:58)
[2021-12-20] MEDS ORDERED: IPRA3AMP31 IH (10:06)
[2021-12-21] MEDS ORDERED: AMOX-117 PO (13:30)
== END 2021-11-04 16:23 | DRG 811 ==
LOC: ER 23:39 → ED HOLD 11-03 03:41 → CANBEDREQ 11-03 14:27 → ORTHO 4S 11-03 16:21
PROVIDERS: ADMIT Internal Medicine; ATTEND Family Medicine
PROC: 30233N1 Transfusion of Nonautologous Red Blood Cells into Peripheral Vein, Percutaneous Approach (ICD-10-PCS; principal; 2021-11-03)
DX: D46.9 Myelodysplastic syndrome, unspecified (principal); U07.1 COVID-19; Z66 Do not resuscitate; E11.9 Type 2 diabetes mellitus without complications; G47.30 Sleep apnea, unspecified; G89.4 Chronic pain syndrome; I10 Essential (primary) hypertension; I48.91 Unspecified atrial fibrillation; K59.00 Constipation, unspecified; M19.90 Unspecified osteoarthritis, unspecified site; M54.9 Dorsalgia, unspecified; Z80.9 Family history of malignant neoplasm, unspecified
CPT/HCPCS: 36415; 36430; 71045; 80053; 82948; 83605; 85007; 85025; 85027; 85610; 85730; 86885; 86900; 86901; 86920; 86945; 87040; 87081; 93005; 99291; G0378; J7030; P9016